=== PATIENT | male | born 1965 | race Caucasian/White ===

== ENCOUNTER 2016-05-28 22:23 | Emergency (ER) | payer MEDICAID ==
[~2016-05-28] VITALS: Ht 165.1 cm; Wt 108.0 kg
[2016-05-28 22:23] VITALS: BP_SYST 113
[~2016-05-28 22:23] MED LIST: DILAUDID; LISI-219 PO; OXYCODONE; VICODIN
[2016-05-28] MEDS ORDERED: cefTRIAXone 2 GM VIAL IM ONE (23:00)
[2016-05-28 23:15] VITALS: BP_SYST 110
[2016-05-28] MEDS ORDERED: LIDOCAINE 1%, 20 ML MDV 20 ML ONE (23:30)
== END 2016-05-28 23:15 | disposition home or self-care (01) ==
LOC: SED 22:23
DX: S02.5XXA Fracture of tooth (traumatic), initial encounter for closed fracture (principal); K04.7 Periapical abscess without sinus; I10 Essential (primary) hypertension; Z88.5 Allergy status to narcotic agent; Z88.8 Allergy status to other drugs, medicaments and biological substances; X58.XXXA Exposure to other specified factors, initial encounter; Y93.89 Activity, other specified; Y92.89 Other specified places as the place of occurrence of the external cause; Y99.8 Other external cause status
CPT/HCPCS: 96372; 99283; J0696; J2001

== ENCOUNTER 2016-06-01 23:34 | Emergency (ER) | payer MEDICAID ==
[~2016-06-01] VITALS: Ht 165.1 cm; Wt 108.4 kg
[2016-06-01 23:45] VITALS: BP_SYST 156
[2016-06-02] MEDS ORDERED: LIDOCAINE VISCOUS 2%, 15 ML UDC MM ONE (00:15)
[2016-06-02 00:46] LABS: BARBITURATE, URINE NEGATIVE (NEG <=200); BENZODIAZEPINE, URINE NEGATIVE (NEG <=150); CANNABINOID, URINE NEGATIVE (NEG <=50); COCAINE, URINE NEGATIVE (NEG <=150); METHAMPHETAMINES SCREEN,URINE NEGATIVE (NEG <=500); OPIATE, URINE POSITIVE (NEG <=100); PHENCYCLIDINE SCREEN,URINE NEGATIVE (NEG <=25); UR TRICYCLIC ANTIDEPRESSANTS NEGATIVE (NEG <=300); URINE AMPHETAMINE NEGATIVE (NEG <=500); URINE METHADONE NEGATIVE (NEG <=200); URINE OXYCODONE SCREEN NEGATIVE (NEG <=100); URINE PROPOXYPHENE SCREEN NEGATIVE (NEG <=300)
== END 2016-06-02 00:13 | disposition left against medical advice (07) ==
LOC: SED 23:34
DX: K08.89 Other specified disorders of teeth and supporting structures (principal); I10 Essential (primary) hypertension; Z88.5 Allergy status to narcotic agent; Z88.8 Allergy status to other drugs, medicaments and biological substances; Z53.20 Procedure and treatment not carried out because of patient's decision for unspecified reasons
CPT/HCPCS: 80307; 99283

== ENCOUNTER 2019-07-30 17:43 | Emergency (ER) | payer SELFPAY ==
[~2019-07-30] VITALS: Ht 165.1 cm; Wt 104.3 kg
[2019-07-30 18:10] VITALS: BP_SYST 144
[2019-07-30] MEDS ORDERED: ACET325T53 PO (18:10)
[2019-07-30] MEDS ORDERED: CYCL-10 PO (18:10)
--- NOTE | 2019-07-30 18:14 | NUR ---
PATIENT RETURNED TO WAITING AREA PENDING BED ASSIGNMENT
[2019-07-30 23:00] VITALS: BP_SYST 144
== END 2019-07-30 23:00 | disposition left against medical advice (07) ==
LOC: SED 17:43
DX: M54.5 Low back pain (principal); Z53.21 Procedure and treatment not carried out due to patient leaving prior to being seen by health care provider
CPT/HCPCS: 72100-TC; 72220-TC

== ENCOUNTER 2019-07-31 13:53 | Emergency (ER) | payer MEDICAID ==
[~2019-07-31] VITALS: Ht 165.1 cm; Wt 104.3 kg
[~2019-07-31 13:53] MED LIST changes: +ACET325T53 PO; +CYCL-10 PO
--- NOTE | 2019-07-31 14:00 | NUR ---
PATIENT TO ER #4
[2019-07-31 14:06] VITALS: BP_SYST 127
--- NOTE | 2019-07-31 14:15 | NUR ---
pt arrives from home w/ c/o lower back pain x 5 days. Pt reports slipping on wet grass before the pain started
--- NOTE | 2019-07-31 14:23 | NUR ---
ER at bedside examining patient.
[2019-07-31 14:28] VITALS: BP_SYST 127
--- NOTE | 2019-07-31 14:29 | NUR ---
Patient given written and verbal discharge instructions and verbalizes understanding. ER MD discussed with patient the results and treatment provided. Patient in stable condition. ID arm band removed. Rx of Bentley given. Patient educated on pain management and to follow up with PMD. Pain Scale 3/10. Opportunity for questions provided and answered. Medication side effect fact sheet provided.
== END 2019-07-31 14:29 | disposition home or self-care (01) ==
LOC: SED 13:53
DX: M54.5 Low back pain (principal); I10 Essential (primary) hypertension; Z88.6 Allergy status to analgesic agent; Z90.49 Acquired absence of other specified parts of digestive tract
CPT/HCPCS: 99283

== ENCOUNTER 2019-10-22 03:02 | Emergency (ER) | payer MEDICAID ==
[~2019-10-22] VITALS: Ht 165.1 cm; Wt 104.3 kg
[2019-10-22 03:02] VITALS: BP_SYST 175
[~2019-10-22 03:02] MED LIST changes: -DILAUDID; -OXYCODONE; -VICODIN
--- NOTE | 2019-10-22 03:40 | NUR ---
Patient to ER bed 03 to gown for evaluation. Side rails up. Report given to JUNIE Leahy.
--- NOTE | 2019-10-22 03:50 | NUR ---
ER at bedside examining patient.
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
[2019-10-22] MEDS ORDERED: traMADol HCL HCL 50 MG TABLET (ULTRAM) PO ONE (04:15)
[2019-10-22] MEDS ORDERED: LISINOPRIL 10 MG TABLET (PRINIVIL) PO ONE (04:15)
[2019-10-22 04:25] VITALS: BP_SYST 175
--- NOTE | 2019-10-22 04:25 | NUR ---
Patient given written and verbal discharge instructions and verbalizes understanding. ER MD discussed with patient the results and treatment provided. Patient in stable condition. ID arm band removed. Rx of Lisnopril, flexeril, ibuprofen, Tramadol given. Patient educated on pain management and to follow up with PMD. Pain Scale 6/10. Opportunity for questions provided and answered. Medication side effect fact sheet provided.
[2019-10-22] MEDS ORDERED: LORATADINE 10 MG TABLET ONE (04:37)
== END 2019-10-22 04:25 | disposition home or self-care (01) ==
LOC: SED 03:02
DX: M54.2 Cervicalgia (principal); M54.9 Dorsalgia, unspecified; I10 Essential (primary) hypertension; Z79.899 Other long term (current) drug therapy; Z88.6 Allergy status to analgesic agent; Z90.49 Acquired absence of other specified parts of digestive tract
CPT/HCPCS: 99283

== ENCOUNTER 2020-01-12 02:16 | Emergency (ER) | payer MEDICAID ==
[~2020-01-12] VITALS: Ht 165.1 cm; Wt 104.3 kg
--- NOTE | 2020-01-12 02:29 | NUR ---
Patient to ER bed 6 to gown for evaluation. Side rails up. Report given to LILIAN.
[2020-01-12 02:30] VITALS: BP_SYST 157
--- NOTE | 2020-01-12 02:30 | NUR ---
PT AAO AND AMBULATORY C/O CHRONIC NECK PAIN FROM OLD INJURY THAT OCCURRED AT WORK THIS PAST JULY. PT REPORTS THAT INJURY IMPROVED BUT BECAME WORSE RECENTLY IN THE PAST FEW WEEKS. PT REPORTS CURRENT PAIN LEVEL 8/10. V/S STABLE.
--- NOTE | 2020-01-12 02:33 | NUR ---
ER Dr. ARCEO at bedside examining patient.
--- NOTE | 2020-01-12 02:57 | NUR ---
Patient given written and verbal discharge instructions and verbalizes understanding. ER MD discussed with patient the results and treatment provided. Patient in stable condition. ID arm band removed. Rx of ULTRAM given. Patient educated on pain management and to follow up with PMD. Pain Scale 5/10. Opportunity for questions provided and answered. Medication side effect fact sheet provided.
[2020-01-12 02:58] VITALS: BP_SYST 157
== END 2020-01-12 02:58 | disposition home or self-care (01) ==
LOC: SED 02:16
DX: M54.2 Cervicalgia (principal); I10 Essential (primary) hypertension; Z79.899 Other long term (current) drug therapy; Z88.6 Allergy status to analgesic agent
CPT/HCPCS: 99283

== ENCOUNTER 2020-02-04 01:02 | Emergency (ER) | payer MEDICAID ==
[~2020-02-04] VITALS: Ht 165.1 cm; Wt 99.8 kg
[2020-02-04 01:18] VITALS: BP_SYST 158
--- NOTE | 2020-02-04 01:18 | NUR ---
Patient triaged and placed in TENT. VSS and patient appears in no acute distress at this time. Accompanied by self, awaiting available bed, and MD notified of need for MSE.
--- NOTE | 2020-02-04 01:20 | NUR ---
PT A&O X4 FROM HOME C/O OF LOWER BACK PAIN FROM AN EXISTING WORK INJURY. PT TESTED POSITIVE FOR COVID 19 ON 01/25/2020 AND HAS NOT BEEN ABLE TO SEE A DOCTOR FOR PRESCRIPTION REFILL ON PAIN MEDICATION. PT WAS TOLD TO COME TO ER TO BE SEEN. PT REPORTS PAIN IS 8/10.
--- NOTE | 2020-02-04 01:27 | NUR ---
ER Dr. LEONE at bedside examining patient.
[2020-02-04 01:44] VITALS: BP_SYST 145
--- NOTE | 2020-02-04 01:44 | NUR ---
Patient given written and verbal discharge instructions and verbalizes understanding. ER MD discussed with patient the results and treatment provided. Patient in stable condition. ID arm band removed. Rx of ultram given. Patient educated on pain management and to follow up with PMD. Pain Scale 8/10. Opportunity for questions provided and answered. Medication side effect fact sheet provided.
== END 2020-02-04 01:44 | disposition home or self-care (01) ==
LOC: SED 01:02
DX: M54.5 Low back pain (principal); I10 Essential (primary) hypertension; Z76.0 Encounter for issue of repeat prescription; Z88.6 Allergy status to analgesic agent; Z79.899 Other long term (current) drug therapy
CPT/HCPCS: 99283

== ENCOUNTER 2020-02-10 21:50 | Emergency (ER) | payer MEDICAID, SELFPAY ==
[~2020-02-10] VITALS: Ht 165.1 cm; Wt 99.8 kg
[2020-02-10 22:17] VITALS: BP_SYST 134
--- NOTE | 2020-02-10 22:17 | NUR ---
Patient triaged and placed in TENT. VSS and patient appears in no acute distress at this time. Accompanied by SELF, awaiting available bed, and MD notified of need for MSE.
--- NOTE | 2020-02-10 22:30 | NUR ---
PT A&O X4 FROM HOME C/O CHRONIC BACK PAIN & NEEDS A REFILL ON PRESCRIPTION PAIN MEDS DUE TO BEING UNABLE TO VISIT PRIMARY DOCTOR DUE TO BEING COVID +.
--- NOTE | 2020-02-11 01:15 | NUR ---
ER Dr. LEONE at bedside examining patient.
[2020-02-11 05:37] VITALS: BP_SYST 128
--- NOTE | 2020-02-11 05:37 | NUR ---
Patient given written and verbal discharge instructions and verbalizes understanding. ER MD discussed with patient the results and treatment provided. Patient in stable condition. ID arm band removed. NO Rx given. Patient educated on pain management and to follow up with PMD. Pain Scale 6/10. Opportunity for questions provided and answered. Medication side effect fact sheet provided.
== END 2020-02-11 05:37 | disposition home or self-care (01) ==
LOC: SED 21:50
DX: M54.5 Low back pain (principal); I10 Essential (primary) hypertension; Z76.0 Encounter for issue of repeat prescription; Z79.899 Other long term (current) drug therapy; Z88.6 Allergy status to analgesic agent
CPT/HCPCS: 99281

== ENCOUNTER 2020-08-07 19:29 | Emergency (ER) | payer MEDICAID, SELFPAY ==
[~2020-08-07] VITALS: Ht 165.1 cm; Wt 104.3 kg
[2020-08-07 19:59] VITALS: BP_SYST 117
[2020-08-07 23:27] VITALS: BP_SYST 117
== END 2020-08-07 23:27 | disposition home or self-care (01) ==
LOC: SED 19:29
DX: M25.552 Pain in left hip (principal); I10 Essential (primary) hypertension; Z88.5 Allergy status to narcotic agent; Z88.8 Allergy status to other drugs, medicaments and biological substances; Z79.899 Other long term (current) drug therapy
CPT/HCPCS: 73502; 99283

== ENCOUNTER 2021-01-29 23:31 | Emergency (ER) | payer MEDICAID, OTHER ==
[~2021-01-29] VITALS: Ht 165.1 cm; Wt 107.0 kg
[~2021-01-29 23:31] MED LIST changes: -CYCL-10 PO; +CYCL10TA24 PO
[2021-01-29 23:39] VITALS: BP_SYST 176
--- NOTE | 2021-01-29 23:39 | NUR ---
Patient to ER chair to [facility] for evaluation. Side rails up. Report given to JUNIE Masterson
--- NOTE | 2021-01-29 23:40 | NUR ---
ER at bedside examining patient.
[2021-01-29] MEDS ORDERED: KETOROLAC TROMETHAMINE 60 MG/2 ML VIAL IM ONE (23:45)
--- NOTE | 2021-01-30 | NUR ---
PT WALK-IN WITH C/O OF LEFT HIP PAIN. HAS HX OF CHRONIC HIP PAIN WAS REFERRED BY GP TO [facility], PT UNABLE TO SEE UNTIL 02/25. WAS TAKING TRAMADOL FOR PAIN WHICH HELPED, HOWEVER RAN OUT OF MEDS. PT STATES HE WAS CLEANING UP THE YARD AND MOVING AROUND A LOT PROBABLY AGGREVATING HIS HIP PAIN. DOES HAVE MILD N/T TO LEG. WALKING WITH SLIGHT LIP TO LEFT SIDE. PALPABLE PEDAL PULSES. LIMITED MOVEMENT TO L HIP WITH PAIN.
[2021-01-30] MEDS ORDERED: DIPHENHYDRAMINE INJ 50 MG/ML VIAL ONE (00:04)
[2021-01-30] MEDS ORDERED: DIPHENHYDRAMINE INJ 50 MG/ML VIAL IM ONE (00:15)
[2021-01-30] MEDS ORDERED: TRAM50TA2 PO (00:49)
--- NOTE | 2021-01-30 00:55 | NUR ---
PT STATES PAIN WITH LITTLE IMPROVEMENT, ABLE TO AMBULATE BY SELF. DISCHARGE INSTRUCTIONS AND PRESCRIPTION GIVEN
--- NOTE | 2021-01-30 00:55 | NUR ---
Patient given written and verbal discharge instructions and verbalizes understanding. ER MD discussed with patient the results and treatment provided. Patient in stable condition. ID arm band removed. Rx of TRMADOL given. Patient educated on pain management and to follow up with PMD. Pain Scale 6. Opportunity for questions provided and answered. Medication side effect fact sheet provided.
[2021-01-30 00:59] VITALS: BP_SYST 176
== END 2021-01-30 00:55 | disposition home or self-care (01) ==
LOC: SED 23:31
DX: M25.552 Pain in left hip (principal); I10 Essential (primary) hypertension; Z79.899 Other long term (current) drug therapy; Z88.8 Allergy status to other drugs, medicaments and biological substances; Z88.5 Allergy status to narcotic agent
CPT/HCPCS: 96372; 99284; J1200; J1885

== ENCOUNTER 2021-08-12 16:13 | Emergency (ER) | payer OTHER, MEDICAID ==
[~2021-08-12] VITALS: Ht 165.1 cm; Wt 107.0 kg
[~2021-08-12 16:13] MED LIST changes: +TRAM50TA2 PO
[2021-08-12 16:24] VITALS: BP_SYST 142
--- NOTE | 2021-08-12 16:31 | NUR ---
PT TRIAGED AND PLACED IN ED WAITING ROOM FOR AVAILABLE BED, MADE AWARE OF MSE NEEDS
--- NOTE | 2021-08-12 17:05 | NUR ---
ER DR. WAN EXAMINING PT IN TRIAGE
[2021-08-12 17:10] VITALS: BP_SYST 142
--- NOTE | 2021-08-12 17:10 | NUR ---
AFTER TALKING WITH DR WAN, PT DECIDED TO LEAVE WITHOUT PAPERWORK.
== END 2021-08-12 17:10 | disposition left against medical advice (07) ==
LOC: SED 16:13
DX: K08.89 Other specified disorders of teeth and supporting structures (principal); I10 Essential (primary) hypertension; Z76.5 Malingerer [conscious simulation]; Z88.6 Allergy status to analgesic agent
CPT/HCPCS: 99281; 99282

== ENCOUNTER 2022-11-18 00:01 | Emergency (ER) | payer OTHER, MEDICAID ==
[~2022-11-18] VITALS: Ht 165.1 cm; Wt 120.2 kg
[2022-11-18 00:30] VITALS: BP_SYST 105; PULSE 82; RESP 17; TEMP 97.8; O2SAT 95
[2022-11-18] MEDS ORDERED: fentaNYL CITRATE/PF 100 MCG/2 ML AMP IVP ONE (01:00)
[2022-11-18] MEDS ORDERED: NACL 0.9% 1,000 ML IV ONE (01:00)
[2022-11-18 02:33] VITALS: TEMP 98.6
[2022-11-18 02:35] VITALS: BP_SYST 96; PULSE 73; RESP 18; O2SAT 93
== END 2022-11-18 02:23 | disposition home or self-care (01) ==
LOC: SED 00:01
DX: M54.50 Low back pain, unspecified (principal); M25.552 Pain in left hip; R11.10 Vomiting, unspecified; I10 Essential (primary) hypertension; Z88.5 Allergy status to narcotic agent; Z88.6 Allergy status to analgesic agent; Z79.899 Other long term (current) drug therapy
CPT/HCPCS: 99283; 96374; 96361; J3010; J7030

== ENCOUNTER 2023-01-16 17:56 | Emergency (ER) | payer MEDICAID, OTHER ==
[~2023-01-16] VITALS: Ht 167.6 cm; Wt 122.5 kg
[2023-01-16 18:00] VITALS: BP_SYST 166; PULSE 77; RESP 18; TEMP 97.5; O2SAT 98
[2023-01-16] MEDS ORDERED: TRAM50TA2 PO (18:31)
[2023-01-16 18:57] VITALS: BP_SYST 166; PULSE 75; RESP 18; TEMP 97.7; O2SAT 100
== END 2023-01-16 18:57 | disposition home or self-care (01) ==
LOC: SED 17:56
DX: G89.29 Other chronic pain (principal); M25.552 Pain in left hip; Z76.0 Encounter for issue of repeat prescription; I10 Essential (primary) hypertension; Z88.5 Allergy status to narcotic agent; Z88.6 Allergy status to analgesic agent; Z79.899 Other long term (current) drug therapy
CPT/HCPCS: 73502; 99283

== ENCOUNTER 2023-07-19 21:21 | Emergency (ER) | payer MEDICAID ==
[~2023-07-19] VITALS: Ht 165.1 cm; Wt 124.7 kg
[2023-07-19 21:43] VITALS: BP_SYST 98; PULSE 7; RESP 20; TEMP 97.1; O2SAT 95
[2023-07-19] MEDS ORDERED: DICL387C TP (22:43)
[2023-07-19] MEDS: ACETAMINOPHEN 500 MG TABLET PO ONE (22:52)
[2023-07-19] MEDS: KETOROLAC TROMETHAMINE 30 MG VIAL IM ONE (22:52)
[2023-07-19] MEDS: LIDOCAINE PATCH 5% 1 EA TP ONE (22:57)
[2023-07-19 23:00] VITALS: BP_SYST 98; PULSE 68; RESP 20; TEMP 97.1; O2SAT 95
== END 2023-07-19 23:00 | disposition home or self-care (01) ==
LOC: SED 21:21
DX: M16.12 Unilateral primary osteoarthritis, left hip (principal); I10 Essential (primary) hypertension; Z79.899 Other long term (current) drug therapy; Z88.5 Allergy status to narcotic agent
CPT/HCPCS: 99283; 96372; J1885

== ENCOUNTER 2023-12-01 21:13 | Emergency (ER) | payer MEDICAID ==
[~2023-12-01] VITALS: Ht 165.1 cm; Wt 122.5 kg
[~2023-12-01 21:13] MED LIST changes: +DICL387C TP
[2023-12-01 21:21] VITALS: BP_SYST 148; PULSE 71; RESP 20; TEMP 98; O2SAT 98
[2023-12-01] MEDS ORDERED: TRAM50TA2 PO (21:23)
[2023-12-01 21:27] VITALS: TEMP 98; O2SAT 98
[2023-12-01 21:31] VITALS: BP_SYST 148; PULSE 71; RESP 18
== END 2023-12-01 21:33 | disposition home or self-care (01) ==
LOC: SED 21:13
DX: K08.89 Other specified disorders of teeth and supporting structures (principal); Z76.0 Encounter for issue of repeat prescription; I10 Essential (primary) hypertension; Z90.49 Acquired absence of other specified parts of digestive tract; Z88.5 Allergy status to narcotic agent; Z79.899 Other long term (current) drug therapy
CPT/HCPCS: 99281